=== PATIENT | male | born 1985 | race Caucasian/White ===

== ENCOUNTER 2016-09-11 14:42 | Emergency (ER) | payer SELFPAY ==
[~2016-09-11] VITALS: Ht 175.3 cm; Wt 68.0 kg
[~2016-09-11 14:42] MED LIST: Z.0.NO CURRENT MEDS
[2016-09-11 14:44] VITALS: BP 116/66; PULSE 62; RESP 14; TEMP 98.5; O2SAT 98
[2016-09-11] MEDS ORDERED: ALUMINUM/MAGNESIUM/SIMETH 30 ML CUP PO ONE (15:15)
[2016-09-11] MEDS ORDERED: LIDOCAINE VISCOUS 2% SOLN 15 ML UDC PO ONE (15:15)
[2016-09-11] MEDS ORDERED: FAMOTIDINE 20 MG/2 ML VIAL IV PUSH ONE (15:15)
[2016-09-11 15:44] LABS: AUTOMATED NEUTROPHIL # 4.8 TH/MM3 (1.8-7.7); BASOPHIL # 0.1 TH/MM3 (0-0.2); BASOPHIL % 0.8 % (0.0-2.0); EOSINOPHIL # 0.1 TH/MM3 (0-0.4); EOSINOPHIL % 1.5 % (0.0-4.0); HEMATOCRIT 37.9 % (39.0-51.0); HEMO FLAGS DIFF FINAL; LYMPH % 17.4 % (9.0-44.0); LYMPHOCYTE # 1.1 TH/MM3 (1.0-4.8); MEAN CELL VOLUME 90.5 FL (80.0-100.0); MEAN CORPUSCULAR HEMOGLOBIN 31.1 PG (27.0-34.0); MEAN CORPUSCULAR HGB CONC 34.4 % (32.0-36.0); MONO % 6.7 % (0.0-8.0); NEUT % 73.6 % (16.0-70.0); PLATELET COUNT 221 TH/MM3 (150-450); RED BLOOD COUNT 4.19 MIL/MM3 (4.50-5.90); RED CELL DISTRIBUTION WIDTH 13.4 % (11.6-17.2); WHITE BLOOD COUNT 6.5 TH/MM3 (4.0-11.0)
[2016-09-11 15:56] LABS: ALT (GPT) 22 U/L (12-78); ANION GAP 4 MEQ/L (5-15); AST (GOT) 20 U/L (15-37); BICARBONATE 31.1 MEQ/L (21.0-32.0); BLOOD UREA NITROGEN 10 MG/DL (7-18); CHLORIDE 106 MEQ/L (98-107); GLOMERULAR FILTRATION RATE 91 ML/MIN (>89); POTASSIUM 3.6 MEQ/L (3.5-5.1); SODIUM (NA) 141 MEQ/L (136-145)
[2016-09-11 16:00] LABS: ALKALINE PHOSPHATASE 84 U/L (45-117); INDIRECT BILIRUBIN 0.5 MG/DL (0.0-0.8); TOTAL BILIRUBIN ADULT 0.7 MG/DL (0.2-1.0)
[2016-09-11 16:46] VITALS: BP 110/71; PULSE 58; RESP 16; O2SAT 99
[2016-09-11] MEDS ORDERED: KETOROLAC TROMETHAMINE 30 MG/ML (IVP) VIAL IV PUSH ONE (17:00)
--- NOTE | 2016-09-11 17:15 | RADRPT ---
EXAM DATE/TIME: 09/11/2016 15:29 [place] COMPARISON: No previous studies available for comparison. INDICATIONS : Shortness of breath and chest pain. MEDICAL HISTORY : None. SURGICAL HISTORY : None. ENCOUNTER: Initial ACUITY: 1 day PAIN SCORE: 3/10 LOCATION: Bilateral chest FINDINGS: PA and lateral views of the chest demonstrate the lungs to be symmetrically aerated without evidence of mass, infiltrate or effusion. The cardiomediastinal contours are unremarkable. Osseous structure s are intact. CONCLUSION: No acute disease. Nehemias Dubois MD on September 11, 2016 at 17:12 Board Certified Radiologist. This report was verified electronically.
--- NOTE | 2016-09-11 17:44 | PD ---
HPI Chief Complaint: Chest Pain Time Seen by Provider: 15:02 Travel History International Travel<30 days: No Contact w/Intl Traveler<30days: No Traveled to known affect area: No History of Present Illness HPI Is a 30-year-old male who comes in complaining of chest pain. He said it started early this morning and got worse after eating lunch today. He says it is in the center of his chest and radiates to behind his left shoulder. He says the pain is worse when he takes a deep breath. He denies any trouble breathing. He did go to an urgent care told him to come here. He has no medical history. He says that this occurred about 2 weeks ago, but it went away on his own. He denies smoking cigarettes or any drug abuse. He denies any family history of early cardiac . He denies any cough or cold. He denies any nausea or vomiting. He was given nitroglycerin and aspirin at urgent care. He says he did not feel any different with these medications. [facility] Past Medical History Medical History: Denies Significant Hx Diminished Hearing: No Tetanus Vaccination: < 5 Years Influenza Vaccination: No Past Surgical History Surgical History: No Previous Surgery Social History Alcohol Use: Yes (rare) Tobacco Use: No Substance Use: No Allergies-Medications (Allergen,Severity, Reaction): Coded Allergies: No Known Allergies (Verified , 09/11/16) Reported Meds & Prescriptions Reported Meds & Active Scripts Active Tramadol (Tramadol HCl) 50 Mg Tab 50 Mg PO Q6H PRN Review of Systems Except as stated in HPI: all other systems reviewed are Neg General / Constitutional: No: Fever, Chills HENT: No: Headaches, Lightheadedness Cardiovascular: Positive: Chest Pain or Discomfort Respiratory: No: Cough Gastrointestinal: No: Nausea, Vomiting Musculoskeletal: No: Myalgias, Pain Skin: No Rash, No Itching Neurologic: No: Weakness, Dizziness Physical Exam Narrative GENERAL: Awake and alert, in no acute distress. SKIN: Focused skin assessment warm/dry. No rash. HEAD: Atraumatic. Normocephalic. EYES: Pupils equal and round. No scleral icterus. ENT: Mucous membranes pink and moist. NECK: Trachea midline. No JVD. CARDIOVASCULAR: Regular rate and rhythm. No murmur appreciated. No chest wall tenderness. RESPIRATORY: No accessory muscle use. Clear to auscultation. Breath sounds equal bilaterally. GASTROINTESTINAL: Abdomen soft, non-tender, nondistended. MUSCULOSKELETAL: No obvious deformities. No clubbing. No cyanosis. No edema. NEUROLOGICAL: Awake and alert. No obvious cranial nerve deficits. Motor grossly within normal limits. Normal speech. PSYCHIATRIC: Appropriate mood and affect; insight and judgment normal. Data Data Last Documented VS Vital Signs Date Time Temp Pulse Resp B/P Pulse Ox O2 Delivery O2 Flow Rate FiO2 09/11/16 18:20 97.8 58 16 120/72 99 09/11/16 16:46 Room Air Orders Electrocardiogram (09/11/16 ) Complete Blood Count With Diff (09/11/16 15:09) Basic Metabolic Panel (Bmp) (09/11/16 15:09) Hepatic Functional Panel (09/11/16 15:09) Lipase (09/11/16 15:09) Troponin I (09/11/16 15:09) D-Dimer (09/11/16 15:09) Ecg Monitoring (09/11/16 15:09) Iv Access Insert/Monitor (09/11/16 15:09) Chest, Pa & Lat (09/11/16 ) Famotidine Inj (Pepcid Inj) (09/11/16 15:15) Al-Mag Hy-Si 40-40-4 Mg/Ml Liq (Mag-Al P (09/11/16 15:15) Lidocaine 2% Viscous (Xylocaine 2% Visco (09/11/16 15:15) Ketorolac Inj (Toradol Inj) (09/11/16 17:00) Mandatory Outpatient Referral (09/11/16 18:14) Labs Laboratory Tests Test 09/11/16 15:11 White Blood Count 6.5 TH/MM3 Red Blood Count 4.19 MIL/MM3 Hemoglobin 13.0 GM/DL Hematocrit 37.9 % Mean Corpuscular Volume 90.5 FL Mean Corpuscular Hemoglobin 31.1 PG Mean Corpuscular Hemoglobin 34.4 % Concent Red Cell Distribution Width 13.4 % Platelet Count 221 TH/MM3 Mean Platelet Volume 8.6 FL Neutrophils (%) (Auto) 73.6 % Lymphocytes (%) (Auto) 17.4 % Monocytes (%) (Auto) 6.7 % Eosinophils (%) (Auto) 1.5 % Basophils (%) (Auto) 0.8 % Neutrophils # (Auto) 4.8 TH/MM3 Lymphocytes # (Auto) 1.1 TH/MM3 Monocytes # (Auto) 0.4 TH/MM3 Eosinophils # (Auto) 0.1 TH/MM3 Basophils # (Auto) 0.1 TH/MM3 CBC Comment DIFF FINAL Differential Comment D-Dimer Quantitative (PE/DVT) 0.25 MG/L FEU Sodium Level 141 MEQ/L Potassium Level 3.6 MEQ/L Chloride Level 106 MEQ/L Carbon Dioxide Level 31.1 MEQ/L Anion Gap 4 MEQ/L Blood Urea Nitrogen 10 MG/DL Creatinine 0.96 MG/DL Estimat Glomerular Filtration 91 ML/MIN Rate Random Glucose 78 MG/DL Calcium Level 8.6 MG/DL Total Bilirubin 0.7 MG/DL Direct Bilirubin 0.2 MG/DL Indirect Bilirubin 0.5 MG/DL Aspartate Amino Transf 20 U/L (AST/SGOT) Alanine Aminotransferase 22 U/L (ALT/SGPT) Alkaline Phosphatase 84 U/L Troponin I LESS THAN 0.02 NG/ML Total Protein 7.5 GM/DL Albumin 3.8 GM/DL Lipase 151 U/L [facility] Medical Decision Making Medical Screen Exam Complete: Yes Emergency Medical Condition: Yes Interpretation(s) ECG shows sinus bradycardia at 56, 0.5 mm elevation diffusely in the ST segment , consistent with pericarditis. Differential Diagnosis ACS versus costochondritis versus pericarditis versus pneumonia versus pneumothorax Narrative Course Patient is a 30 year old male who comes in complaining of chest pain that started earlier this morning. Exam shows no acute abnormalities. IV established, labs sent, patient connected to the environmental monitoring specialist. Labs show no acute abnormalities, Troponin and D-dimer are negative. Chest XR shows no acute abnormalities. ECG shows possible pericarditis. Patient treated with Toradol. Advised to continue Ibuprofen at home. Advised to follow up with a primary care doctor. Advised to return to the ED as needed for any worsening symptoms. Advised to refrain from any drug use or cigarette smoking (which patient denies at this time). Diagnosis Primary Impression: Pericarditis Qualified Code: I30.9 - Acute pericarditis, unspecified type Referrals: Dariana Juarez MD call for appointment Patient Instructions: Acute Pericarditis (ED), General Instructions Additional Instructions: Take Ibuprofen. Follow up with cardiology/a primary care doctor. Return to the ED as needed for any worsening symptoms. Scripts Tramadol 50 Mg Tab50 Mg PO Q6H PRN (PAIN) #10 TAB Ref 0 Prov:Marybeth Lam MD 09/11/16 Disposition: 01 DISCHARGE HOME Condition: Stable Marybeth Lam MD September 11, 2016 17:44
[2016-09-11 18:03] VITALS: RESP 16
[2016-09-11] MEDS ORDERED: TRAM50TA PO (18:14)
[2016-09-11 18:20] VITALS: BP 120/72; TEMP 97.8
--- NOTE | 2016-09-12 11:22 | EKG ---
Date Performed: 09/11/2016 Time Performed: 15:13:04 PTAGE: 30 years EKG: SINUS BRADYCARDIA BORDERLINE ECG NO PREVIOUS TRACING DOCTOR: Benjamin Dalton Interpretating Date/Time 09/12/2016 11:18:33
== END 2016-09-11 18:20 | disposition home or self-care (01) ==
LOC: NEPC 14:42
DX: I30.9 Acute pericarditis, unspecified (principal)
CPT/HCPCS: 71020; 80048; 80076; 83690; 84484; 85025; 85379; 93005; 96374; 96375; 99285; J1885